=== PATIENT | male | born 1950 | race Hispanic/Latino ===

== ENCOUNTER 2018-02-13 13:41 | Inpatient (IN) | payer OTHER ==
[~2018-02-13 13:41] MED LIST: ePHEDrine/0.9% NaCl/PF SYRINGE 50 mg/10 ml ONE
[2018-02-13 14:05] LABS: Actual Bicarbonate (HCO3a) 22.4 mEq/L (22-28); Base Excess (BEa) -0.2 mEq/L (-2.0 to +3.0); CO2 Tension 29.6 mmHg (35.0-45.0); Calcium, Ionized 1.2 mmol/L (1.12-1.30); O2 Tension (PaO2) 127.8 mmHg (> 80.0)
[2018-02-13 14:06] LABS: Analyzer IN Cardio ER; Puncture Site LRA
[2018-02-13] MEDS ORDERED: fentaNYL Citrate/PF 2,000 MCG in Sodium Chloride 0.9% 60 ML IV SCH ×2 (14:15→16:45)
[2018-02-13] MEDS ORDERED: Lidocaine 0.5%/Epinephrine 1:200,000 50 ml Vial ONE (14:39)
[2018-02-13] MEDS ORDERED: Sodium Chloride 0.9% 10 ML ONE (14:39)
[2018-02-13] MEDS ORDERED: Thrombin 5000 UNITS/5 ML VIAL ONE (14:39)
--- NOTE | 2018-02-13 15:28 | CON ---
DATE OF CONSULTATION: 02/13/2018 Sree Kessler PA-C dictating for Naif Vega MD CHIEF COMPLAINT: Altered mental status with a large acute on chronic subdural hematoma with midline shift. HISTORY OF PRESENT ILLNESS: Mr. Valdez is an inmate at [facility] and was transferred from [facility] for complaints of altered mental status and lethargy. This has been doe ppening for the past 24 hours. The patient has a history of right carotid stent placement and a hist ory of CVA in 10/2017 and was on Plavix and 81 mg aspirin. He does have a history of hypertension, s upposedly some psychiatric issues, which included self-inflicted head trauma. According to the ER ph ysician in [place], there is no evidence of trauma within the patent, and his presenting systolic blood pressure was 183/73 with an INR of 1.3. Given his increasing lethargy and inability to protect his airway, he was intubated in the ER in [place], but according to the ED, his presenting GCS wa s an 8. Head CT was obtained that shows large acute on chronic right frontal and temporal subdural h ematoma with around 1 cm of midline shift. On physical exam, the patient is currently intubated and was on propofol, but developed hypotension. Subsequently, has been off propofol for the past several minutes and given some fluid to help with the hypertension. He attempts to track to the examiner, b ut does not open his eyes. When his eyes are open, he does again attempt to track to the examiner. Pupils are equal around 2-3 mm and sluggishly reactive bilaterally. He withdraws in the bilateral lo wer extremities, weak withdrawal in the right upper extremity, and localizes with the left upper extr emity. This makes his GCS 8T, E2 V1 M5. IMPRESSION: Acute on chronic right-sided subdural hematoma. PLAN: We will take the patient emergently to the OR for a right-sided yayo hole placement with possi bility of conversion to a right-sided craniotomy. Given the fact that the patient is an inmate, it i s difficult to locate family, and again we will proceed with emergent surgery. Dr. Vega has obviou kourtneyy reviewed the patient's scan with me and has provided the surgical opinion. We will admit the pat ient to ICU and place appropriate orders and consults.
[2018-02-13] MEDS: Sodium Chloride 0.9% 1,000 ML IV SCH (15:40)
[2018-02-13 16:15] LABS: Actual Bicarbonate (HCO3a) 23.3 mEq/L (22-28); Base Excess (BEa) -0.9 mEq/L (-2.0 to +3.0); CO2 Tension 36.5 mmHg (35.0-45.0); Hematocrit-ABG 27.1 % (42.0-52.0); Hemoglobin (Hb) 8.5 g/dL (14.0-18.0); O2 Tension (PaO2) 239.6 mmHg (> 80.0); pH, Arterial 7.42 (7.35-7.45)
[2018-02-13 16:16] LABS: ALV-art Gradient 139.575 (0-20); Calcium, Ionized 1.2 mmol/L (1.12-1.30); Puncture Site RRA
[2018-02-13] MEDS ORDERED: Bisacodyl 10 MG SUPP PR PRN (16:18)
[2018-02-13] MEDS ORDERED: Milk Of Magnesia 30 ML UDCUP PO PRN (16:18)
[2018-02-13] MEDS ORDERED: CCU Electrolyte Replacement 1 EACH IVPB ONE (16:18)
[2018-02-13] MEDS ORDERED: Mag-Al 1200 mg/1200 mg/30 ML UDCUP PO PRN (16:18)
[2018-02-13] MEDS ORDERED: Docusate 100 MG CAP PO PRN (16:18)
[2018-02-13] MEDS ORDERED: Ondansetron HCl/PF 4 MG/2 ML Vial IVP PRN (16:18)
[2018-02-13] MEDS ORDERED: niCARdipine 20MG in NaCl 200 ML BAG IVPB PRN (16:18)
[2018-02-13] MEDS ORDERED: Acetaminophen 325 MG TAB PO PRN (16:18)
[2018-02-13] MEDS ORDERED: Sodium Chloride 0.9% 1,000 ML IV SCH (16:30)
[2018-02-13] MEDS ORDERED: Ventilator Sedation Protocol 1 EACH FS SCH (16:30)
[2018-02-13] MEDS ORDERED: hydrALAZINE 20 MG/ML VIAL SLOW IVP PRN (16:31)
[2018-02-13] MEDS ORDERED: DISCONTINUE PREVIOUS NARCOTIC PAIN MEDICATIONS AND BENZODIAZEPINES FS SCH (16:40)
[2018-02-13] MEDS ORDERED: Fentanyl BOLUS 250 ML IVPB PRN (16:40)
[2018-02-13] MEDS ORDERED: Propofol 1,000 MG/100 ML VIAL IV PRN (16:40)
[2018-02-13] MEDS ORDERED: Lorazepam 2 MG/ML VIAL SLOW IVP PRN (16:40)
[2018-02-13] MEDS ORDERED: Propofol BOLUS 1,000 MG/100 ML VIAL IV PRN (16:40)
[2018-02-13] MEDS ORDERED: Potassium Phosphate 12 MMOL in Sodium Chloride 0.9% 250 ML 250 ML IV PRN (16:44)
[2018-02-13] MEDS ORDERED: Potassium Chloride 40 MEQ in Premix Bag 1 BAG IVPB PRN (16:44)
[2018-02-13] MEDS ORDERED: Magnesium Oxide 400 MG TAB PO PRN ×2 (16:44)
[2018-02-13] MEDS ORDERED: Potassium Chloride 40 MEQ in Sodium Chloride 0.9% 250 ML 250 ML IVPB PRN (16:44)
[2018-02-13] MEDS ORDERED: CCU ELECTROLYTE REPLACEMENT PROTOCOL FS PRN (16:44)
[2018-02-13] MEDS ORDERED: Potassium Phosphate 15 MMOL in Sodium Chloride 0.9% 250 ML 250 ML IV PRN (16:44)
[2018-02-13] MEDS ORDERED: Potassium Phosphate 9 MMOL in Sodium Chloride 0.9% 100 ML IVPB PRN (16:44)
[2018-02-13] MEDS ORDERED: Magnesium 2 GM/NS 0.9% 100 ML 2 GM in Premix Bag 1 BAG IVPB PRN (16:44)
[2018-02-13] MEDS ORDERED: Potassium Chloride 20 MEQ TAB PO PRN (16:44)
--- NOTE | 2018-02-13 16:58 | PRG ---
DATE OF SERVICE: 02/13/2018 SUBJECTIVE: Mr. Valdez presented with neurological decline. He is an inmate in [place]. Head C T in [place] demonstrates a very large multi-aged subdural hematoma with almost 2 cm of right to l eft midline shift. This is resulting in his neurological decline. We have made plans for emergency surgery, should be a right-sided bur hole evacuation of subdural hematoma with placement of subdural drain with possible craniotomy for hematoma evacuation. We also arranged to give him a six pack of p latelets as he is on aspirin and Plavix. DIAGNOSES: Large subacute on chronic subdural hematoma with midline shift, neurological decline.
[2018-02-13] MEDS: CEFAZOLIN/Water 2 GM/20 ML SYRINGE SLOW IVP SCH (17:56)
[2018-02-13] MEDS: Pantoprazole 40 MG VIAL IVP SCH (20:39)
[2018-02-13] MEDS ORDERED: Famotidine/PF 20 mg/2ml Vial SLOW IVP SCH (21:00)
[2018-02-13] MEDS ORDERED: CEFAZOLIN 2 GM in Sodium Chloride 0.9% 100 ML IVPB SCH (22:00)
--- NOTE | 2018-02-13 22:57 | OP ---
OR: 11. WOUND TYPE: Type 1 wound. SURGEON: Naif Vega M.D. INTELLIGENCE CHIEF: Sree Kessler PA-C. A modifier 57 should be added to this surgery as decision to operate was made on the day I saw the gisel ross. PREPROCEDURE DIAGNOSIS: Right-sided subacute on chronic subdural hematoma with mass effect, midline shift, and neurological decline on aspirin and Plavix. POSTPROCEDURE DIAGNOSIS: Right-sided subacute on chronic subdural hematoma with mass effect, midline shift, and neurological decline on aspirin and Plavix. PROCEDURE PERFORMED: Right-sided frontal and parietal yayo hole evacuation of subdural hematoma and placement of subdural drain. DESCRIPTION OF PROCEDURE: This was deemed an emergency surgery given the neurologic decline and mass effect on the head CT as such, the patient was brought to OR 11. Proper patient pause identificatio n was carried out. The right frontal and parietal regions were identified. Hair was clipped. This region was sterilely cleansed, prepared, and draped following the making of two small linear cabral, p repping and draping occurred sterilely. Both wounds, we then opened and retractors placed. Bur hole s fashioned. Dura opened revealing a pseudomembrane and this was opened. Motor oil colored fluid ca me out under high pressure. This was evacuated to irrigant clear. A subdural drain was then placed and secured to the skin. The wounds were then copiously irrigated, hemostasis maximized and closed i n anatomic layers. The patient was brought to the ICU intubated.
--- NOTE | 2018-02-14 01:21 | CON ---
DATE OF CONSULTATION: 02/13/2018 HISTORY OF PRESENT ILLNESS: Sunny Valdez is a 67-year-old gentleman, intubated on the vent, unabl e to get any history. He is status post emergency craniotomy for a subdural with a shift. Has a karla triculostomy in place. Has transfer records from [place] in maintenance therapy. There are [facility] who were unable to give any history. CT brain shows a large extraaxial collection of fluid with a midline shift, right frontoparietal area with mass effect. There is a fracture apparently in the parietal bone. Additional history apparent ly has included previous CVA, hypertension, hyperlipidemia, previous mental status problems. SOCIAL HISTORY: Unknown alcohol or tobacco abuse. The patient was intubated in [place], try to transfer the patient to [place], no beds are availa ble; therefore, sent to [facility], Dr. Vega done an emergency surgery on him. CURRENT MEDICATIONS: [facility] includes a long list of m edicine outlined sertraline 50 mg a day, risperidone 2 mg a day, Keppra 500 mg twice a day, Benadryl 25 p.r.n., carbamazepine 200 mg 1 tablet twice daily. PAST MEDICAL HISTORY: Outlined in the chart includes CVA, visual loss, hyperlipidemia. His lab from [place] extensively visualized with Dr. Addison. His CBC, chemistry profile shows cliff l white count, normal H and H. Renal function was normal. There is a note from the [facility] dated 12/04/2017. The patient with hypertension and a left MC A ischemic stroke on 10/28/2017, right ICA stent placed in 10/31/2017. He was on aspirin and Plavix at one time, hospitalized in [place]. Hemorrhagic transformation. He additionally was started on amlodipine, aspirin, Plavix 75, Prozac 20, lisinopril 10. ALLERGIES: Apparently unknown. His note for 11/22/2017, apparently revealed that he had a left frontal, left basilar ganglia subacut e infarct with hemorrhagic transformation. PHYSICAL EXAMINATION: GENERAL: He is intubated on the vent today. He is cachectic. VITAL SIGNS: Respiratory rate is set at 14, he is not on the vent. Pulse 63, blood pressure 122/80, sats 100%. HEENT: Pupils are 2 mm reacting. CHEST: Decreased breath sounds. No wheezing or crackles. CARDIAC: Normal S1, S2. No gallops. ABDOMEN: Soft, no masses. LABORATORY DATA: His blood gas pO2 is 239, pCO2 of 42 on a rate of 14, 16%. IMPRESSION AND PLAN: 1. Acute right-sided subdural hematoma, emergency evacuation. 2. Hypertension. 3. Recent cerebrovascular accident as noted for hypertension. 4. Cachexia. 5. Bipolar disorder with medicine as outlined. Pulmonary critical care will follow while intubate on the vent. Basic supportive care, avoid sedatio n. We will reassess the situation once all the sedation wears off. This is a forty-five minutes critical care time. We will follow.
[2018-02-14] MEDS: CEFAZOLIN/Water 2 GM/20 ML SYRINGE SLOW IVP SCH ×3 (03:28→18:12)
[2018-02-14] MEDS: Sodium Chloride 0.9% 1,000 ML IV SCH ×2 (03:30→18:04)
[2018-02-14 05:22] LABS: #Lymphocytes 1.4 thou/uL (1.20-3.40); #Monocytes 0.9 thou/uL (0.11-0.59); #Neutrophils 8.1 thou/uL (1.40-6.50); %Basophils 0.1 % (0.0-1.0); %Eosinophils 0.4 % (0.0-10.0); %Lymphocytes 13.1 % (21.0-51.0); %Neutrophils 77.4 % (42.0-75.0); Hemoglobin 10.1 g/dL (14.0-18.0); Mean Corpuscular HGB CONC 32.4 g/dL (32.0-36.0); Mean Corpuscular Hemoglobin 31.1 pg (27.0-31.0); Platelet Count 253 thou/uL (130-400); Red Blood Cell (RBC) Count 3.25 mill/uL (4.70-6.10); White Blood Cell (WBC) Count 10.4 thou/uL (4.8-10.8)
[2018-02-14 05:37] LABS: Anion Gap 12 mmol/L (10-20); BUN (Urea Nitrogen) 15 mg/dL (8.4-25.7); Calc. Creatinine Clearance 106 mL/min (70-130); Calcium 8.4 mg/dL (7.8-10.44); Carbon Dioxide 24 mmol/L (23-31); Chloride 111 mmol/L (98-107); Estimated GFR-MDRD Greater than 90; Glucose 104 mg/dL (80-115); Potassium 3.1 mmol/L (3.5-5.1); Sodium 144 mmol/L (136-145)
[2018-02-14 07:27] VITALS: BP 126/52
[2018-02-14 07:34] LABS: Actual Bicarbonate (HCO3a) 22.7 mEq/L (22-28); Base Excess (BEa) -0.8 mEq/L (-2.0 to +3.0); CO2 Tension 33.2 mmHg (35.0-45.0); Hematocrit-ABG 26.1 % (42.0-52.0); Hemoglobin (Hb) 8.7 g/dL (14.0-18.0); O2 Tension (PaO2) 180.8 mmHg (> 80.0); pH, Arterial 7.45 (7.35-7.45)
[2018-02-14 07:35] LABS: Calcium, Ionized 1.2 mmol/L (1.12-1.30); Puncture Site RRA
--- NOTE | 2018-02-14 08:00 | RAD ---
PORTABLE SUPINE FRONTAL CHEST RADIOGRAPH: Date: 02/14/18 COMPARISON: None. HISTORY: Ventilated patient. FINDINGS: Supine imaging limits assessment for pneumothorax and pleural fluid. Endotracheal tube projects over the tracheal air column, approximately 3.0 cm proximal to the jasmin. No focal consolidation. IMPRESSION: Endotracheal tube in place. POS: [facility]
[2018-02-14] MEDS ORDERED: DC Sedation Protocol FS ONE (08:17)
--- NOTE | 2018-02-14 08:30 | PRG ---
DATE OF SERVICE: 02/14/2018 This morning the patient is more responsive to my surprise. CT brain shows evacuation of the previous subdural. His chest x-ray shows no obvious infiltrates. ET tube right place. He has got a left-sided infiltrate. PHYSICAL EXAMINATION: VITAL SIGNS: Pulse 90, blood pressure 140/71, sats 100%. NEURO: Neurologically awake, responsive, nods. CHEST: Chest reveals decreased breath sounds without wheezing. CARDIAC: Normal S1, S2. No gallops. ABDOMEN: Soft, no masses. LABORATORY: His electrolytes are normal. Potassium 3.1. PO2 is 180, pCO2 37.45, rate of 14. His white count 10,000, H&H 10 and 30, platelet 253. IMPRESSION: 1. The patient is status post evacuation of subdural. 2. Respiratory failure. 3. History of seizure disorders. 4. Recent stent placed in [place]. PLAN: He is going to be weaned and extubated this morning. Neurosurgeon to consider, transfer him back [place]. Restart his bipolar medication. One-half hour critical care time. LACHO
--- NOTE | 2018-02-14 08:50 | CT ---
PRELIMINARY REPORT/[facility]/EMERGENTY AFTER-HOURS PROCEDURE CT Head Without Intravenous Contrast CLINICAL HISTORY: 67 years old, male; Condition or disease; Aneurysm, cerebral; Prior surgery; Surgery date: Postoperat renaldo (0-2 days); Patient HX: Intercracerebral hemorrhage stroke TECHNIQUE: Axial computed tomography images of the head/brain without intravenous contrast. COMPARISON: No relevant prior studies available. FINDINGS: Right frontal yayo hole with the drain extending to the right temporal extra-axial space. Right-sided subdural collection containing fluid/faint age indeterminate blood products and air with mass effect on the right frontoparietal lobes and approximately 8 mm shift to the left. There is a small left fr ontal extra-axial collection/trauma of indeterminate age measuring 5 mm. The cisterns are patent. There is no definite hydrocephalus Metastases are seen at [facility]. Chronic left basal ganglia lacunar infarction/remote hemorrhage There is no acute territorial infarction. Minimal polypoid tissue in the right sphenoid sinus The remainder of the visualized paranasal sinuses are grossly clear. The mastoid cavities are grossly clear IMPRESSION: Subdural drain with residual right-sided subdural collection and air. 8 mm shift to the left. Compari sonwith prior images of the helpful Small left frontal age indeterminate subdural hematoma/collection Thank you for allowing us to participate in the care of your patient. Dictated and Authenticated by: Levi Barbosa MD 02/14/2018 4:24 AM Central Time ([place] & [place]) FINAL REPORT CT HEAD NONCONTRAST: DATE: 02/14/18. TIME: Performed on an emergency basis at 0309 hours. HISTORY: Surgery. Intracranial hemorrhage. FINDINGS: No comparison. Agree with the preliminary report by Dr. Torres from [facility]. Postoperativ e changes include right subdural drain with pneumocephalus remaining. Small amount of residual subdu ral fluid slightly hyperdense to CSF. Persistent leftward shift of the septum pellucidum by approxima tely 0.8 cm. POS: [facility]
--- NOTE | 2018-02-14 12:49 | PRG ---
DATE OF SERVICE: 02/14/2018 Mr. Valdez is back to his baseline. He is intubated, but he is alert and answers questions appropri ately. He follows commands on the left side. He has longstanding hemiplegia. We will mobilize him and leave the drain in place.
[2018-02-14] MEDS: Pantoprazole 40 MG VIAL IVP SCH (20:59)
[2018-02-15] MEDS: CEFAZOLIN/Water 2 GM/20 ML SYRINGE SLOW IVP SCH ×2 (02:44→10:00)
[2018-02-15 04:21] LABS: #Eosinphils 0.1 thou/uL (0.0-0.7); #Lymphocytes 1.7 thou/uL (1.20-3.40); #Neutrophils 6.7 thou/uL (1.40-6.50); %Basophils 0.2 % (0.0-1.0); %Eosinophils 1.5 % (0.0-10.0); %Lymphocytes 17.6 % (21.0-51.0); %Monocytes 10.9 % (0.0-10.0); %Neutrophils 69.8 % (42.0-75.0); Mean Corpuscular Hemoglobin 31.4 pg (27.0-31.0); Mean Corpuscular Volume 94.9 fl (80.0-94.0); Mean Platelet Volume 7.5 fL (7.4-10.4); Platelet Count 283 thou/uL (130-400); Red Blood Cell (RBC) Count 3.19 mill/uL (4.70-6.10); White Blood Cell (WBC) Count 9.6 thou/uL (4.8-10.8)
[2018-02-15 04:33] LABS: Anion Gap 13 mmol/L (10-20); BUN (Urea Nitrogen) 11 mg/dL (8.4-25.7); Calc. Creatinine Clearance 112 mL/min (70-130); Calcium 8.2 mg/dL (7.8-10.44); Carbon Dioxide 22 mmol/L (23-31); Chloride 107 mmol/L (98-107); Estimated GFR-MDRD Greater than 90; Glucose 86 mg/dL (80-115); Sodium 139 mmol/L (136-145)
[2018-02-15 06:11] VITALS: BMI 24.3
--- NOTE | 2018-02-15 08:13 | RAD ---
SEMIUPRIGHT PORTABLE CHEST 1 VIEW: Date: 02/15/18 HISTORY: 67-year-old male with history of respiratory insufficiency. COMPARISON: 02/14/18. FINDINGS: Endotracheal tube has been removed. No evidence for pneumothorax or pleural effusion. No confluent pn eumonia. IMPRESSION: Removal of the endotracheal tube. Stable increased markings in the left base. No significant new proc ess. Continue follow-up for complete clearing or stability. POS: [facility]
--- NOTE | 2018-02-15 08:35 | PRG ---
DATE OF SERVICE: 02/15/2018 This morning awake, alert and responsive, still agitated. PHYSICAL EXAMINATION: VITAL SIGNS: Pulse 83, blood pressure is 161/62, sats 90%, respiration 14. CHEST: Chest reveals decreased breath sounds, no wheezing. CARDIAC: Normal S1, S2, no gallops. ABDOMEN: Soft, no masses. His chest x-ray today shows no acute infiltrates. IMPRESSION: 1. Status post subdural. 2. Respiratory failure. 3. Seizure disorder. PLAN: I am going to restart his home medication. He can be transferred back to [place] as per his primary physician.
[2018-02-15] MEDS: levETIRAcetam 500 MG TAB PO SCH ×2 (09:00→20:47)
[2018-02-15] MEDS ORDERED: NUTRITIONAL SUPPLEMENT PO SCH (09:00)
[2018-02-15] MEDS ORDERED: Non-Formulary Item 1 EACH (Sertraline Hcl [Sertraline Hcl] 50 MG) PO SCH (09:00)
[2018-02-15] MEDS ORDERED: Non-Formulary Item 1 EACH (Risperidone [Risperidone] 2 MG) PO SCH (09:00)
[2018-02-15] MEDS ORDERED: risperiDONE 1 MG TAB PO SCH (09:15)
[2018-02-15] MEDS: Sodium Chloride 0.9% 1,000 ML IV SCH (09:58)
[2018-02-15] MEDS: carBAMazepine 200 MG TAB PO SCH ×2 (10:01→20:47)
[2018-02-15] MEDS: [UNRECOGNIZED DRUG - OTHER] PO SCH ×2 (16:20→20:50)
[2018-02-15 20:35] VITALS: TEMP 98.3
[2018-02-15] MEDS: Pantoprazole 40 MG VIAL IVP SCH (20:46)
--- NOTE | 2018-02-15 20:57 | PRG ---
DATE OF SERVICE: 02/15/2018 Mr. Valdez is postoperative day 2 from yayo hole evacuation of very large right-sided subdural hemat steven. He is doing very well this morning. He converses appropriately. He has baseline right-sided h emiplegia, but moves his left side to command. His wounds are healing well. I have removed his drai n. Frankly, at this point, he may be dismissed back to the [facility] system. I would recommend staple removal in 2 weeks. We will arrange for repeat head CT in 1 month.
[2018-02-15] MEDS ORDERED: diphenhydrAMINE 25 MG CAP PO SCH (21:00)
[2018-02-16] MEDS ORDERED: risperiDONE 1 MG TAB PO SCH (09:00)
== END 2018-02-15 23:50 | DRG 25 ==
LOC: EEVIPCON 13:41 → ERS 13:41 → CCU 15:54
PROVIDERS: ADMIT Surgery; ATTEND Surgery
PROC: 00C43ZZ Extirpation of Matter from Intracranial Subdural Space, Percutaneous Approach (ICD-10-PCS; principal; 2018-02-13)
PROC: 009430Z Drainage of Intracranial Subdural Space with Drainage Device, Percutaneous Approach (ICD-10-PCS; 2018-02-13)
DX: I62.02 Nontraumatic subacute subdural hemorrhage (principal); J96.90 Respiratory failure, unspecified, unspecified whether with hypoxia or hypercapnia; G81.91 Hemiplegia, unspecified affecting right dominant side; Z79.01 Long term (current) use of anticoagulants; Z79.82 Long term (current) use of aspirin; G40.909 Epilepsy, unspecified, not intractable, without status epilepticus; Z95.5 Presence of coronary angioplasty implant and graft; F31.9 Bipolar disorder, unspecified
CPT/HCPCS: 36415; 36430; 70450; 71045; 80048; 82805; 85025; 86850; 86900; 86901; 93005; 94002; 94003; A4216; C9113; G8996-GN-CJ; G8996-GN-CK; G8997-GN-CJ; J1953; J2001; J2270; J3010; J3490; J7050; P9035